=== PATIENT | male | born 1985 | race Caucasian/White ===

== ENCOUNTER 2020-04-10 00:51 | Outpatient (CLI) | payer OTHER, SELFPAY ==
[2020-04-10 16:30] LABS: SARS-CoV-2 RNA PCR Negative
== END 2020-04-10 00:52 | disposition home or self-care (01) ==
LOC: ANHCOVIDDT 00:51
PROVIDERS: PCP Family Medicine; Visit Provider Urology
DX: Z01.812 Encounter for preprocedural laboratory examination (principal); Z20.828 Contact with and (suspected) exposure to other viral communicable diseases
CPT/HCPCS: 87635; C9803; U0003

== ENCOUNTER 2020-04-12 00:41 | Day surgery (SDC) | payer OTHER, SELFPAY ==
[2020-03-30 12:09] VITALS: BMI 31.5
--- NOTE | 2020-04-12 10:26 | SUR.PREOP ---
Dr Gonzales notified that patient had drank [address] way to hospital.
[2020-04-12 10:33] VITALS: BP 131/81; PULSE 70; RESP 20; TEMP 36.7; O2SAT 98
[2020-04-12] MEDS: ACETAMINOPHEN 500 MG TABLET 1000 MG PO (10:47)
[2020-04-12] MEDS: LACTATED RINGERS 1,000 ML 30 ML IV CONT ×2 (10:49→12:54)
--- NOTE | 2020-04-12 11:23 | WPDANESEPPF ---
Anes - Initial Pre Proc Eval Procedure: Operation Date: 04/12/20 12:00 Proposed Procedures p Bilateral Vasectomy - Emily Candelario MD Date/Time: 04/12/20 11:23 Surgeon: Emily Candelario MD Pre Op Diagnosis: Desires Sterilization Patient Data Age: 35 Gender: M Height: 5 ft 10 in Weight: 102.9 kg Last Vital Signs Temp 98.0 F 04/12/20 10:33 Pulse 70 04/12/20 10:33 Resp 20 04/12/20 10:33 BP 131/81 04/12/20 10:33 Pulse Ox 98 04/12/20 10:33 Allergies Allergy/AdvReac Type Severity Reaction Status Date / Time No Known Allergies Allergy Verified 04/12/20 10:29 Home Medications Medication Instructions Recorded Confirmed Type fluticasone propionate [Flonase] 2 spray INTRANASAL DAILY 03/30/20 04/12/20 History Patient hx anesthesia problems: none Family hx anesthesia problems: none [facility] Past Medical History Medical History (Updated 04/12/20 @ 11:22 by Amish Gonzales MD) Anxiety GERD (gastroesophageal reflux disease) Social History Social History Years smoked: 3 Smoking status: Former smoker Tobacco type: cigarettes and e-cigarettes/vaping Additional smoking assessment comments: QUIT 15 YEARS AGO Anes - Eval Final PreProcedure Day of Procedure 04/12/20 11:23 Patient weight: overweight Heart: regular rate and rhythm Lungs: clear to auscultation Airway: Mallampati scale class II Neurological: alert and oriented Last oral intake: >/= 8 hours ASA classification: II Emergent: no Anesthetic plan: proceed Anesthesia type and monitoring: general GIVS and standard monitoring Informed Consent: The patient's anesthetic plan and its attendant risks and benefits were discussed with the patient/family/POA. Questions were solicited and answers provided to the satisfaction of the patient/family/POA.
--- NOTE | 2020-04-12 12:10 | WPDHPUPDATE1 ---
History and Physical Update Update Date/Time: 04/12/20 12:10 History and Physical has been reviewed, including an updated exam of the patient. There are NO changes in the patient's condition. Risks, benefits, and alternatives have been discussed and questions answered. Patient agrees to proceed with procedure.
[2020-04-12] MEDS: ceFAZolin 2 GM/D5W 50 ML 2 GM/50 ML BAG IVPB (12:15)
[2020-04-12] MEDS: BUPIVACAINE HCL 0.5% PF 30 ML VIAL INFILTRATE (12:36)
[2020-04-12 12:54] VITALS: BP 99/58; PULSE 93; RESP 10; O2SAT 94
--- NOTE | 2020-04-12 12:56 | PM.PROC ---
Procedure Note - Detailed Date of procedure: 04/12/20 Pre-op diagnosis: Desires Sterilization Post-op diagnosis: same Procedure performed: Bilateral vasectomy Description of procedure: Informed consent obtained. Patient taken the operating room. Given preoperative IV antibiotics and given anesthetic. He was prepped and draped in the normal sterile fashion. The vas was injected with 0.5% Marcaine without epinephrine on each side. The left vas was grasped the skin was punctured the vas was brought through the skin from surrounding structures. A 2cm portion was removed. Each end was then cauterized. A tie was placed over each end. The fascial interposition was performed. We then performed identical procedure on the right side, the patient did have more fat along the right vas deferens, however once this was moved away the vas was identical to the contralateral side and the same procedure was performed with bilateral ties, cauterization and then fascial interposition. Antibiotic ointment was placed over the non scalpel opening. Specimens size patient was taken to recovery in stable condition Anesthesia: MAC Surgeon: Emily Candelario MD Estimated blood loss (mL): 0 Drains: No Packing: No Pathology: yes Complications: No immediate complications Condition: stable Disposition: PACU
[2020-04-12 13:30] VITALS: BP 103/59; PULSE 86; RESP 12
[2020-04-12 13:50] VITALS: BP 109/70; PULSE 63; RESP 12
== END 2020-04-12 14:00 | disposition home or self-care (01) ==
PROVIDERS: PCP Family Medicine; Visit Provider Urology
PROC: (CPT 55250; principal; 2020-04-12 12:00)
DX: Z30.2 Encounter for sterilization (principal); Z87.891 Personal history of nicotine dependence
CPT/HCPCS: 55250; 88300; 88302; A9270; J0690; J1100; J2250; J2405; J2704; J3010; J7120

== ENCOUNTER 2020-05-31 14:21 | Outpatient (CLI) | payer OTHER, SELFPAY ==
[2020-05-31 15:13] LABS: Influenza Control Valid (Valid)
[2020-06-01 17:19] LABS: SARS-CoV-2 RNA PCR Negative
== END 2020-05-31 14:22 | disposition home or self-care (01) ==
LOC: CHSLAB 14:23
PROVIDERS: PCP Family Medicine; Visit Provider Family Medicine
DX: J00 Acute nasopharyngitis [common cold] (principal); Z20.828 Contact with and (suspected) exposure to other viral communicable diseases
CPT/HCPCS: 87081; 87635; 87804; 87880; C9803; U0003

== ENCOUNTER 2020-08-04 16:01 | Outpatient (CLI) | payer OTHER, SELFPAY ==
--- NOTE | ~2020-08-04 | XR_ITS ---
EXAMINATION: XR wrist RT min 3V DATE: 08/04/2020 16:16 INDICATION: Right wrist pain TECHNIQUE: Posteroanterior, ulnar deviation, oblique, and lateral views of the right wrist were obtai maral. COMPARISON: none FINDINGS: Alignment is normal. No fracture. Joint spaces are normal. Soft tissues are unremarkable. IMPRESSION: 1. Negative right wrist radiographs. Reviewed, dictated and finalized at location A. [place] [employer]
== END 2020-08-04 16:02 | disposition home or self-care (01) ==
LOC: CHSIMG 16:04
PROVIDERS: PCP Family Medicine; Visit Provider Family Medicine
DX: M25.531 Pain in right wrist (principal)
CPT/HCPCS: 73110

== ENCOUNTER 2022-08-15 09:42 | Emergency (ER) | payer OTHER, SELFPAY ==
[2022-08-15 09:48] VITALS: BP 146/95; PULSE 67; RESP 20; TEMP 36.7; O2SAT 100
--- NOTE | 2022-08-15 09:49 | ED.URI ---
HPI - URI/Sore Throat General Chief Complaint: Upper Respiratory Infection Stated Complaint: Headache/Congestioin Source: patient and RN notes reviewed History of Present Illness HPI Narrative: 37-year-old male presents to urgent care with complaints of congestion and just not feeling well for last few days. Patient states today he began having a sore throat and rates it at a 1/10 on the pain scale. Patient took some Aleve yesterday for headache. Denies any fevers, chills, vomiting, diarrhea, chest pain or shortness of breath. Some parts of this dictation were generated by voice recognition software and may contain typographical and/or grammatical inaccuracies. Related Data Home Medications Medication Instructions Recorded Confirmed fluticasone propionate 50 2 spray intranasal DAILY 03/30/20 04/12/20 mcg/actuation nasal spray,suspension Allergies Allergy/AdvReac Type Severity Reaction Status Date / Time No Known Allergies Allergy Verified 08/15/22 09:52 Review of Systems Review of Systems: CONSTITUTIONAL: Denies fever, chills, or sweats. EYES: Denies visual changes, redness, or discharge. ENT: Sore throat, congestion CARDIOVASCULAR: Denies chest pain, palpitations, or edema. RESPIRATORY: Cough GASTROINTESTINAL: Denies abdominal pain, nausea, vomiting, or diarrhea. GENITOURINARY: Denies dysuria or hematuria. SKIN: Denies rash or itching. MUSCULOSKELETAL: Denies back pain, joint pain, or myalgia. NEUROLOGIC: Headache PMFSH Past Medical History Medical History (Updated 08/15/22 @ 10:17 by Carito Villanueva APRN) Anxiety GERD (gastroesophageal reflux disease) Social History Social History Years smoked: 3 Smoking status: Former smoker Tobacco type: cigarettes and e-cigarettes/vaping Additional smoking assessment comments: QUIT 15 YEARS AGO Comments At the time of my signature, I reviewed and agree with the nursing past medical, surgical, social, and family history. There is no relevant family history pertinent to the patient complaint. Exam Narrative: GENERAL: This is a well-nourished, well-developed patient, in no apparent distress. HEAD: normocephalic, atraumatic. EYES: PERRL. Sclera clear/white. Vision is grossly intact. EARS: External ears normal, auditory canals clear and without drainage, TMs normal without perforation. Hearing grossly intact. NOSE: External nose normal with no obvious nasal discharge, nares without redness, no rhinorrhea. THROAT: Mucous membranes moist, posterior pharynx clear. NECK: Neck supple, non-tender without lymphadenopathy, masses or thyromegaly. CARDIOVASCULAR: Regular rate and rhythm without murmurs, gallops, or rubs. RESPIRATORY: Clear to auscultation. Breath sounds equal bilaterally. No wheezes, rales, or rhonchi. GASTROINTESTINAL: Abdomen soft, non-tender, nondistended. Bowel sounds are active. No hepato-splenomegaly, or palpable masses. No guarding. SKIN: warm, intact with no suspicious lesions or rash, good texture and turgor. NEURO: awake, alert, and oriented to person, place and time. There were no obvious focal neurologic abnormalities. EXTREMITIES: No clubbing, cyanosis, or edema. No joint tenderness, effusion, or edema noted. BACK: Nontender without deformity or crepitance. No flank tenderness. Course Course Level of Care: Express Care Visit Vital Signs Vital signs: Vital Signs Temperature 98.1 F 08/15/22 09:48 Pulse Rate 67 08/15/22 09:48 Respiratory Rate 20 08/15/22 09:48 Blood Pressure 146/95 H 08/15/22 09:48 Pulse Oximetry 100 08/15/22 09:48 Oxygen Delivery Room Air 08/15/22 09:48 Temperature 98.1 F 08/15/22 09:48 Pulse Rate 67 08/15/22 09:48 Respiratory Rate 20 08/15/22 09:48 Blood Pressure 146/95 H 08/15/22 09:48 Pulse Oximetry 100 08/15/22 09:48 Oxygen Delivery Room Air 08/15/22 09:48 Reviewed MDM - URI/Sore Throat MDM Narrative Medical decision making narrative: Viral illness may
== END 2022-08-15 10:18 | disposition home or self-care (01) ==
PROVIDERS: Emergency Provider Nurse Practitioner Family; PCP Family Medicine
DX: J02.9 Acute pharyngitis, unspecified (principal); Z87.891 Personal history of nicotine dependence
CPT/HCPCS: 87081; 87880; 99213; G0463